=== PATIENT | male | born 2000 | race Caucasian/White ===

== ENCOUNTER 2024-10-07 15:58 | Emergency (ER) | payer OTHER | END 2024-10-07 18:35 | disposition left against medical advice (07) | LOC: ERS 15:58 | DX: Z53.21 Procedure and treatment not carried out due to patient leaving prior to being seen by health care provider (principal) | CPT/HCPCS: 71045; 93005; 94760 ==

== ENCOUNTER 2025-08-20 18:33 | Emergency (ER) | payer OTHER ==
[2025-08-20 19:25] LABS: #Basophils 0.04 10x3/uL (0.0-0.2); #Eosinophils 0.16 10x3/uL (0.0-0.7); #Monocytes 0.85 10x3/uL (0.11-0.59); #Neutrophils 4.73 10x3/uL (1.40-6.50); %Basophils 0.5 % (0.0-1.0); %Eosinophils 2.1 % (0.0-10.0); %Lymphocytes 23.1 % (21.0-51.0); %Monocytes 11.3 % (0.0-10.0); %Neutrophils 62.7 % (42.0-75.0); Hematocrit 43.3 % (42.0-52.0); Hemoglobin 14.4 g/dL (14.0-18.0); Mean Corpuscular Hemoglobin 30.6 pg (27.0-31.0); Mean Corpuscular Volume 91.9 fL (78.0-98.0); Platelet Count 245 10x3/uL (130-400); Red Blood Cell (RBC) Count 4.71 mill/uL (4.70-6.10); White Blood Cell (WBC) Count 7.54 10x3/uL (4.8-10.8)
[2025-08-20 19:41] LABS: ALT (SGPT) 15 U/L (Less than 45); AST (SGOT) 26 U/L (11-34); Albumin 4.3 g/dL (3.1-4.5); Alkaline Phosphatase 59 U/L (40-110); Anion Gap 7 mmol/L (10-20); BUN (Urea Nitrogen) 14 mg/dL (8.9-20.6); Bilirubin, Total 0.4 mg/dL (0.3-1.2); Calc. Creatinine Clearance 0 mL/min (70-130); Calcium 9.0 mg/dL (7.8-10.44); Carbon Dioxide 26 mmol/L (22-29); Chloride 106 mmol/L (98-107); Globulin 2.9 g/dL (2.4-3.5); Glucose 134 mg/dL (70-105); Magnesium 2.1 mg/dL (1.6-2.6); Potassium 3.9 mmol/L (3.5-5.1); Sodium 135 mmol/L (136-145)
[2025-08-20 20:02] LABS: Acetaminophen Less than 10 mcg/mL (Less than 10); Salicylate Less than 8.0 mg/dL (Less than 8.0)
[2025-08-20 20:07] LABS: INR-International Normal Ratio 1.0; PTT 25.7 sec (22.9-36.1); Prothrombin Time 13.4 sec (12.0-14.7)
== END 2025-08-20 21:07 | disposition home or self-care (01) ==
LOC: ERS 18:33
DX: R42 Dizziness and giddiness (principal); R29.703 NIHSS score 3; E10.9 Type 1 diabetes mellitus without complications; F17.290 Nicotine dependence, other tobacco product, uncomplicated
CPT/HCPCS: 36415; 70450; 70496; 70498; 80053; 80307; 83735; 85025; 85610; 85730; 93005